=== PATIENT | female | born 1985 | race Caucasian/White ===

== ENCOUNTER → 2020-10-01 | Outpatient (CLI) | payer OTHER ==
[~2020-10-01] MED LIST: COLACE 100MG C100 MG PO; IBUPROFEN600 MG PO; NORCO 5-325 TA1 EACH PO; ORTHO MICRONO0.35 MG PO
== END ==
LOC: US 10:30
DX: N61.0 Mastitis without abscess (principal); N63.12 Unspecified lump in the right breast, upper inner quadrant
CPT/HCPCS: 76641-RT

== ENCOUNTER → 2021-04-09 | Outpatient (CLI) | payer OTHER | LOC: US 04-02 11:00 | DX: R92.8 Other abnormal and inconclusive findings on diagnostic imaging of breast (principal) | CPT/HCPCS: 76641-RT ==